=== PATIENT | female | born 1975 | race Caucasian/White ===

== ENCOUNTER 2023-10-20 01:39 | Inpatient (IN) | payer OTHER ==
[2023-10-20 02:52] VITALS: BMI 27.8
[2023-10-20] MEDS ORDERED: LOPERAMIDE HCL 2 MG CAPSULE PO PRN (03:44)
[2023-10-20] MEDS ORDERED: NALOXONE (NARCAN) HCL 4 MG/0.1 ML SPRAY NS PRN (03:44)
[2023-10-20] MEDS ORDERED: MAGNESIUM HYDROX 2400MG/30ML ORAL SUSPENSION 30 ML CUP PO PRN (03:44)
[2023-10-20] MEDS ORDERED: DICYCLOMINE HCL 10 MG CAPSULE PO PRN (03:44)
[2023-10-20] MEDS ORDERED: guaiFENesin 600 MG TABLET.ER (FP) PO PRN (03:44)
[2023-10-20] MEDS ORDERED: BISMUTH SUBSALICYLATE 524 MG/30 ML PO PRN (03:44)
[2023-10-20] MEDS ORDERED: ACETAMINOPHEN 325 MG TABLET (FP) PO PRN (03:44)
[2023-10-20] MEDS ORDERED: BENZONATATE 200 MG CAPSULE PO PRN (03:44)
[2023-10-20] MEDS ORDERED: BENZOCAINE/MENTHOL (CHLORASEPTIC ) LOZENGE MM PRN (03:44)
[2023-10-20] MEDS ORDERED: POLYETHYLENE GLYCOL (HEALTHYLAX) 3350 17 GM PACKET PO PRN (03:44)
[2023-10-20] MEDS ORDERED: IBUPROFEN 400 MG TABLET (FP) PO PRN (03:44)
[2023-10-20] MEDS ORDERED: NALOXONE HCL 0.4 MG/ML VIAL IM PRN (03:44)
[2023-10-20] MEDS ORDERED: cloNIDine HCL 0.1 MG TABLET PO PRN (03:54)
[2023-10-20] MEDS: methaDONE HCL 10 MG TABLET (FOR DETOX USE ONLY) PO ONE (05:34)
[2023-10-20] MEDS: clonazePAM 0.5 MG ODT TABLETS SL PRN (05:34)
[2023-10-20] MEDS: IBUPROFEN 600 MG TABLET (FP) PO PRN (05:36)
[2023-10-20] MEDS ORDERED: AMOX TR/POT CLAV 875MG/125MG TABLETS (FP) PO SCH (08:00)
[2023-10-20] MEDS: NICOTINE 21 MG/24 HOURS TOPICAL PATCH TD SCH (09:43)
[2023-10-20] MEDS: PRENATAL VITAMINS W/ FOLIC ACID TABLET (FP) PO SCH (09:43)
[2023-10-20] MEDS: AMOX TR/POT CLAV 875MG/125MG TABLETS (FP) PO SCH (10:20)
[2023-10-20] MEDS: SULFAMETHOXAZOLE/TRIMETHOPRIM 800MG/160MG D.S. TABLET PO SCH (10:46)
[2023-10-20] MEDS: BACITRACIN 0.9 GM PACKET TP SCH (10:46)
[2023-10-20] MEDS: hydrOXYzine PAMOATE 25 MG CAPSULE (FP) PO PRN (10:54)
[2023-10-20 11:53] LABS: CHLORIDE 107 mmol/L (98-107); HEMATOCRIT 29.2 % (32.4-45.2); HEMOGLOBIN 9.8 GM/dL (10.7-15.3); MCH 31.1 pg (25.7-33.7); MCHC 33.6 g/dl (32.0-36.0); MEAN CELL VOLUME 92.6 fl (80-96); MEAN PLT VOLUME 8.7 fl (7.5-11.1); PLATELET COUNT 151 10^3/uL (134-434); POTASSIUM 4.6 mmol/L (3.5-5.1); RBC 3.15 M/mm3 (3.60-5.2); RDW 15.2 % (11.6-15.6); SODIUM 143 mmol/L (136-145); WHITE BLOOD COUNT 4.4 K/mm3 (4.0-10.0)
[2023-10-20 12:04] LABS: ALBUMIN 3.3 g/dl (3.4-5.0); CALCIUM 9.3 mg/dL (8.5-10.1)
[2023-10-20 12:05] LABS: ANION GAP 4 mmol/L (4-13); BLOOD UREA NITROGEN 19.4 mg/dL (7-18); CO2 32 mmol/L (21-32); GLUCOSE,RANDOM 118 mg/dL (74-106)
[2023-10-20 12:07] LABS: SGPT/ALT 20 U/L (13-61)
[2023-10-20 12:08] LABS: CREATININE 0.7 mg/dL (0.55-1.3); SGOT/AST 15 U/L (15-37)
[2023-10-20 12:09] LABS: BILIRUBIN,TOTAL 0.6 mg/dL (0.2-1)
[2023-10-20 12:10] LABS: ALK PHOS 90 U/L (45-117)
[2023-10-20] MEDS: DIVALPROEX SODIUM 500 MG TABLET E.C. PO SCH (21:54)
[2023-10-20] MEDS: THIAMINE 100 MG TABLET PO SCH (21:55)
[2023-10-20] MEDS: risperiDONE 1 MG TABLET PO SCH (21:55)
[2023-10-20] MEDS: MELATONIN 5 MG TABLETS PO SCH (21:55)
[2023-10-20] MEDS: traZODone HCL 50 MG TABLET (FP) PO SCH (21:55)
[2023-10-20] MEDS ORDERED: traZODone HCL 100 MG TABLET (FP) PO SCH (22:00)
[2023-10-22] MEDS: methaDONE HCL 10 MG TABLET (FOR DETOX USE ONLY) PO ONE (09:27)
[2023-10-22] MEDS: NICOTINE POLACRILEX 4 MG GUM BUC PRN (15:58)
[2023-10-22] MEDS: MAG HYDROX/AL HYDROX/SIMETH 30 ML UNIT-DOSE CUP PO PRN (15:58)
[2023-10-23] MEDS: ONDANSETRON *ODT* 4 MG TABLET SL PRN (14:31)
[2023-10-23] MEDS: METHOCARBAMOL 500 MG TABLET PO PRN (18:48)
[2023-10-24] MEDS: methaDONE HCL 10 MG TABLET (FOR DETOX USE ONLY) PO ONE (10:01)
[2023-10-25 06:23] VITALS: RESP 16
[2023-10-25 08:43] VITALS: BP 111/63; PULSE 72; TEMP 97.8
== END 2023-10-25 08:31 | disposition other institution (70) | DRG 773 ==
LOC: YASAS 01:39 → Y3N 04:05
PROVIDERS: ADMIT Allergy & Immunology; ATTEND Allergy & Immunology
PROC: HZ2ZZZZ Detoxification Services for Substance Abuse Treatment (ICD-10-PCS; principal; 2023-10-20)
DX: F11.23 Opioid dependence with withdrawal (principal); F10.230 Alcohol dependence with withdrawal, uncomplicated; F14.20 Cocaine dependence, uncomplicated; F12.20 Cannabis dependence, uncomplicated; F17.210 Nicotine dependence, cigarettes, uncomplicated; F19.24 Other psychoactive substance dependence with psychoactive substance-induced mood disorder; F31.9 Bipolar disorder, unspecified; D64.9 Anemia, unspecified; G47.00 Insomnia, unspecified; S91.301D Unspecified open wound, right foot, subsequent encounter; X58.XXXD Exposure to other specified factors, subsequent encounter; Z59.01 Sheltered homelessness; Z86.73 Personal history of transient ischemic attack (TIA), and cerebral infarction without residual deficits; Z88.0 Allergy status to penicillin
CPT/HCPCS: 36415; 80053; 80164; 80305; 80307; 81025; 85027; 86780; 93005; 93010; Q0162

== ENCOUNTER 2023-11-17 14:35 | Inpatient (IN) | payer OTHER ==
[2023-11-17 16:50] VITALS: BMI 27.3
[2023-11-17] MEDS ORDERED: IBUPROFEN 400 MG TABLET (FP) PO PRN (18:43)
[2023-11-17] MEDS ORDERED: ONDANSETRON *ODT* 4 MG TABLET SL PRN (18:43)
[2023-11-17] MEDS ORDERED: NALOXONE HCL 0.4 MG/ML VIAL IM PRN (18:43)
[2023-11-17] MEDS ORDERED: DICYCLOMINE HCL 10 MG CAPSULE PO PRN (18:43)
[2023-11-17] MEDS ORDERED: BENZOCAINE/MENTHOL (CHLORASEPTIC ) LOZENGE MM PRN (18:43)
[2023-11-17] MEDS ORDERED: POLYETHYLENE GLYCOL (HEALTHYLAX) 3350 17 GM PACKET PO PRN (18:43)
[2023-11-17] MEDS ORDERED: ACETAMINOPHEN 325 MG TABLET (FP) PO PRN (18:43)
[2023-11-17] MEDS ORDERED: BISMUTH SUBSALICYLATE 524 MG/30 ML PO PRN (18:43)
[2023-11-17] MEDS ORDERED: guaiFENesin 600 MG TABLET.ER (FP) PO PRN (18:43)
[2023-11-17] MEDS ORDERED: MAGNESIUM HYDROX 2400MG/30ML ORAL SUSPENSION 30 ML CUP PO PRN (18:43)
[2023-11-17] MEDS ORDERED: BENZONATATE 200 MG CAPSULE PO PRN (18:43)
[2023-11-17] MEDS ORDERED: NICOTINE POLACRILEX 2 MG GUM BUC PRN (18:43)
[2023-11-17] MEDS ORDERED: NALOXONE (NARCAN) HCL 4 MG/0.1 ML SPRAY NS PRN (18:43)
[2023-11-17] MEDS ORDERED: LOPERAMIDE HCL 2 MG CAPSULE PO PRN (18:43)
[2023-11-17] MEDS ORDERED: cloNIDine HCL 0.1 MG TABLET PO PRN (18:52)
[2023-11-17] MEDS ORDERED: cloNIDine HCL 0.1 MG TABLET ONE (19:20)
[2023-11-17] MEDS ORDERED: methaDONE HCL 10 MG TABLET (FOR DETOX USE ONLY) ONE (19:20)
[2023-11-17] MEDS: cloNIDine HCL 0.1 MG TABLET PO ONE (19:25)
[2023-11-17] MEDS: methaDONE HCL 10 MG TABLET (FOR DETOX USE ONLY) PO ONE (19:25)
[2023-11-17] MEDS: MELATONIN 5 MG TABLETS PO SCH (22:40)
[2023-11-17] MEDS: THIAMINE 100 MG TABLET PO SCH (22:40)
[2023-11-17] MEDS: IBUPROFEN 600 MG TABLET (FP) PO PRN (22:42)
[2023-11-17] MEDS: METHOCARBAMOL 500 MG TABLET PO PRN (22:42)
[2023-11-17] MEDS: hydrOXYzine PAMOATE 25 MG CAPSULE (FP) PO PRN (22:42)
[2023-11-18] MEDS: NICOTINE 14 MG/24 HOURS TOPICAL PATCH TD SCH (10:31)
[2023-11-18] MEDS: PRENATAL VITAMINS W/ FOLIC ACID TABLET (FP) PO SCH (10:32)
[2023-11-18] MEDS: amLODIPine BESYLATE 5 MG TABLET (FP) PO SCH (10:32)
[2023-11-18 11:40] LABS: HEMATOCRIT 35.2 % (32.4-45.2); MCH 29.8 pg (25.7-33.7); MEAN CELL VOLUME 87.5 fl (80-96); MEAN PLT VOLUME 8.9 fl (7.5-11.1); PLATELET COUNT 154 10^3/uL (134-434); RBC 4.02 M/mm3 (3.60-5.2); RDW 13.4 % (11.6-15.6); WHITE BLOOD COUNT 4.7 K/mm3 (4.0-10.0)
[2023-11-18 12:04] LABS: CHLORIDE 107 mmol/L (98-107); POTASSIUM 3.4 mmol/L (3.5-5.1); SODIUM 142 mmol/L (136-145)
[2023-11-18 12:09] LABS: ALBUMIN 3.4 g/dl (3.4-5.0); ANION GAP 4 mmol/L (4-13); CALCIUM 9.1 mg/dL (8.5-10.1); CO2 31 mmol/L (21-32); GLUCOSE,RANDOM 97 mg/dL (74-106)
[2023-11-18 12:10] LABS: BLOOD UREA NITROGEN 16.3 mg/dL (7-18)
[2023-11-18 12:12] LABS: SGPT/ALT 30 U/L (13-61)
[2023-11-18 12:13] LABS: CREATININE 0.8 mg/dL (0.55-1.3)
[2023-11-18 12:14] LABS: BILIRUBIN,TOTAL 0.6 mg/dL (0.2-1); SGOT/AST 22 U/L (15-37)
[2023-11-18 12:16] LABS: ALK PHOS 72 U/L (45-117)
[2023-11-18] MEDS: hydrOXYzine PAMOATE 25 MG CAPSULE (FP) PO PRN (15:17)
[2023-11-18] MEDS: DIVALPROEX SODIUM 500 MG TABLET E.C. PO SCH (22:25)
[2023-11-18] MEDS: risperiDONE 1 MG TABLET PO SCH (22:25)
[2023-11-19] MEDS: methaDONE HCL 10 MG TABLET PO ONE ×2 (11:04→11:16)
[2023-11-19] MEDS: methaDONE HCL 10 MG TABLET (FOR DETOX USE ONLY) PO ONE (11:16)
[2023-11-19] MEDS: diazePAM 5 MG TABLET PO PRN (18:20)
[2023-11-19] MEDS: levETIRAcetam 250 MG TABLET PO SCH (22:08)
[2023-11-20] MEDS ORDERED: methaDONE HCL 10 MG TABLET PO ONE (10:03)
[2023-11-21] MEDS: methaDONE HCL 40 MG DISPERSABLE TABLET PO ONE (09:11)
[2023-11-21] MEDS ORDERED: methaDONE HCL 10 MG TABLET (FOR DETOX USE ONLY) PO ONE (10:00)
[2023-11-22] MEDS: methaDONE HCL 40 MG DISPERSABLE TABLET PO ONE (09:20)
[2023-11-22] MEDS: MAG HYDROX/AL HYDROX/SIMETH 30 ML UNIT-DOSE CUP PO PRN (19:51)
[2023-11-23] MEDS: methaDONE 40 MG, methaDONE 10 MG PO ONE (09:43)
[2023-11-23 09:49] VITALS: RESP 18; TEMP 97.6
[2023-11-23 13:20] VITALS: BP 122/71; PULSE 88
== END 2023-11-23 14:16 | disposition other institution (70) | DRG 773 ==
LOC: YASAS 14:35 → Y6N 18:32
PROVIDERS: ADMIT Allergy & Immunology; ATTEND Surgery
PROC: HZ2ZZZZ Detoxification Services for Substance Abuse Treatment (ICD-10-PCS; principal; 2023-11-17)
DX: F11.23 Opioid dependence with withdrawal (principal); F10.230 Alcohol dependence with withdrawal, uncomplicated; F14.20 Cocaine dependence, uncomplicated; F12.20 Cannabis dependence, uncomplicated; F17.210 Nicotine dependence, cigarettes, uncomplicated; F25.0 Schizoaffective disorder, bipolar type; F41.9 Anxiety disorder, unspecified
CPT/HCPCS: 36415; 80053; 80305; 80307; 81025; 84132; 85027; 86780; 87811; 93005; 93010

== ENCOUNTER 2023-11-23 14:44 | Inpatient (IN) | payer OTHER ==
[2023-11-23] MEDS ORDERED: NALOXONE (NARCAN) HCL 4 MG/0.1 ML SPRAY NS PRN (16:39)
[2023-11-23] MEDS ORDERED: ACETAMINOPHEN 325 MG TABLET (FP) PO PRN (16:39)
[2023-11-23] MEDS ORDERED: guaiFENesin 600 MG TABLET.ER (FP) PO PRN (16:39)
[2023-11-23] MEDS ORDERED: LOPERAMIDE HCL 2 MG CAPSULE PO PRN (16:39)
[2023-11-23] MEDS ORDERED: MAGNESIUM HYDROX 2400MG/30ML ORAL SUSPENSION 30 ML CUP PO PRN (16:39)
[2023-11-23] MEDS ORDERED: BENZONATATE 200 MG CAPSULE PO PRN (16:39)
[2023-11-23] MEDS ORDERED: NICOTINE POLACRILEX 2 MG LOZENGE BC PRN (16:39)
[2023-11-23] MEDS ORDERED: NALOXONE HCL 0.4 MG/ML VIAL IVPUSH PRN (16:39)
[2023-11-23] MEDS ORDERED: POLYETHYLENE GLYCOL (HEALTHYLAX) 3350 17 GM PACKET PO PRN (16:39)
[2023-11-23] MEDS: risperiDONE 1 MG TABLET PO SCH (21:38)
[2023-11-23] MEDS: MELATONIN 5 MG TABLETS PO SCH (21:38)
[2023-11-23] MEDS: THIAMINE 100 MG TABLET PO SCH (21:38)
[2023-11-23] MEDS: DIVALPROEX SODIUM 500 MG TABLET E.C. PO SCH (21:38)
[2023-11-24] MEDS: methaDONE 40 MG, methaDONE 20 MG PO ONE (07:41)
[2023-11-24] MEDS: methaDONE HCL 10 MG TABLET PO ONE (09:03)
[2023-11-24] MEDS: amLODIPine BESYLATE 5 MG TABLET (FP) PO SCH (10:12)
[2023-11-24] MEDS: PRENATAL VITAMINS W/ FOLIC ACID TABLET (FP) PO SCH (10:13)
[2023-11-24] MEDS: NICOTINE 14 MG/24 HOURS TOPICAL PATCH TD SCH (10:14)
[2023-11-24] MEDS ORDERED: LACTULOSE 20 GM/30 ML UDC (FOR ORAL USE ONLY) PO PRN (13:26)
[2023-11-24] MEDS: LACTULOSE 20 GM/30 ML UDC (FOR ORAL USE ONLY) PO SCH (15:11)
[2023-11-24] MEDS: PRAZOSIN HCL 1 MG CAPSULE PO SCH (21:34)
[2023-11-24] MEDS: hydrOXYzine PAMOATE 25 MG CAPSULE (FP) PO PRN (21:34)
[2023-11-24] MEDS: METHOCARBAMOL 500 MG TABLET PO PRN (21:35)
[2023-11-24] MEDS ORDERED: PRAZOSIN HCL 1 MG CAPSULE PO SCH (22:00)
[2023-11-25] MEDS ORDERED: methaDONE HCL 10 MG TABLET PO ONE (06:00)
[2023-11-25] MEDS: methaDONE 40 MG, methaDONE 20 MG PO ONE (06:14)
[2023-11-25] MEDS: SILVER SULFADIAZINE 1% TOP CREAM 50 GM JAR TP SCH (14:28)
[2023-11-26] MEDS ORDERED: methaDONE HCL 10 MG TABLET PO ONE (06:00)
[2023-11-26] MEDS: methaDONE 40 MG, methaDONE 20 MG PO ONE (06:16)
[2023-11-26] MEDS: BENZOCAINE/MENTHOL (CHLORASEPTIC ) LOZENGE MM PRN (19:18)
[2023-11-26] MEDS: IBUPROFEN 600 MG TABLET (FP) PO PRN (19:18)
[2023-11-26] MEDS: MELATONIN 5 MG TABLETS PO PRN (21:15)
[2023-11-26 22:09] LABS: EPI CELLS 27 /uL (0-25.1); HYALINE CASTS 2 /uL (0-3.1); PH,URINE 5.5 (5.0-8.0); URINE APPEARANCE CLEAR; URINE BACTERIA 220 /uL (0-1359); URINE BILIRUBIN NEGATIVE (NEGATIVE); URINE COLOR DK YELLOW; URINE GLUCOSE (UA) NEGATIVE (NEGATIVE); URINE KETONE TRACE (NEGATIVE); URINE LEUK ESTERASE TRACE (NEGATIVE); URINE NITRITE NEGATIVE (NEGATIVE); URINE PROTEIN NEGATIVE (NEGATIVE); URINE RBC 8 /uL (0-23.9); URINE UROBILINOGEN 0.2 mg/dL (0.2-1.0); URINE WBC 39 /uL (0-25.8)
[2023-11-27] MEDS ORDERED: methaDONE 40 MG, methaDONE 20 MG PO ONE (06:00)
[2023-11-27] MEDS ORDERED: methaDONE HCL 10 MG TABLET PO ONE ×2 (06:00→10:00)
[2023-11-27] MEDS: methaDONE 40 MG, methaDONE 10 MG PO ONE (06:48)
[2023-11-27] MEDS ORDERED: methaDONE 40 MG, methaDONE 10 MG PO ONE (10:00)
[2023-11-27] MEDS: hydrOXYzine PAMOATE 25 MG CAPSULE (FP) PO PRN (15:28)
[2023-11-28] MEDS: methaDONE HCL 40 MG DISPERSABLE TABLET PO SCH (05:50)
[2023-11-28] MEDS: hydrOXYzine PAMOATE 25 MG CAPSULE (FP) PO PRN (17:00)
[2023-11-28] MEDS: traZODone HCL 100 MG TABLET (FP) PO SCH (21:40)
[2023-11-28] MEDS: GABAPENTIN 100 MG CAPSULE PO SCH (21:48)
[2023-11-30] MEDS: GABAPENTIN 100 MG CAPSULE PO SCH (21:28)
[2023-11-30] MEDS: hydrOXYzine PAMOATE 50 MG CAPSULE (FP) PO PRN (21:28)
[2023-12-01] MEDS: IBUPROFEN 400 MG TABLET (FP) PO PRN (06:10)
[2023-12-03] MEDS: MAG HYDROX/AL HYDROX/SIMETH 30 ML UNIT-DOSE CUP PO PRN (11:45)
[2023-12-04] MEDS ORDERED: methaDONE HCL 40 MG DISPERSABLE TABLET PO SCH (10:53)
[2023-12-04] MEDS: methaDONE HCL 10 MG TABLET PO ONE (11:52)
[2023-12-05] MEDS: methaDONE 40 MG, methaDONE 10 MG PO SCH (06:46)
[2023-12-06] MEDS: NICOTINE POLACRILEX 2 MG GUM BUC PRN (13:08)
[2023-12-06] MEDS: GABAPENTIN 300 MG CAPSULE PO SCH (21:46)
[2023-12-11] MEDS: ACAMPROSATE CALCIUM 333 MG TABLET.DR PO SCH (14:36)
[2023-12-14] MEDS: GABAPENTIN 300 MG CAPSULE PO SCH (21:16)
[2023-12-15] MEDS: GABAPENTIN 100 MG CAPSULE PO SCH (21:37)
[2023-12-18] MEDS: hydrOXYzine PAMOATE 25 MG CAPSULE (FP) PO PRN (11:59)
[2023-12-20] MEDS: hydrOXYzine PAMOATE 25 MG CAPSULE (FP) PO PRN (14:25)
[2023-12-20] MEDS: SIMETHICONE 80 MG TAB.CHEW (FP) PO PRN (19:42)
[2023-12-20 22:45] VITALS: RESP 18
[2023-12-21 06:55] VITALS: BP 125/66; PULSE 78; TEMP 97.8
== END 2023-12-21 08:40 | disposition home or self-care (01) | DRG 772 ==
LOC: YASAS 14:44 → Y5N 14:45
PROVIDERS: ADMIT Allergy & Immunology; ATTEND Psychiatry & Neurology Pain Medicine
PROC: HZ42ZZZ Group Counseling for Substance Abuse Treatment, Cognitive-Behavioral (ICD-10-PCS; principal; 2023-11-23)
DX: F11.20 Opioid dependence, uncomplicated (principal); F10.20 Alcohol dependence, uncomplicated; F14.20 Cocaine dependence, uncomplicated; F17.210 Nicotine dependence, cigarettes, uncomplicated; F43.10 Post-traumatic stress disorder, unspecified; F19.982 Other psychoactive substance use, unspecified with psychoactive substance-induced sleep disorder; F19.94 Other psychoactive substance use, unspecified with psychoactive substance-induced mood disorder; F41.9 Anxiety disorder, unspecified; F29 Unspecified psychosis not due to a substance or known physiological condition; F32.A Depression, unspecified; I10 Essential (primary) hypertension; B18.2 Chronic viral hepatitis C; G47.00 Insomnia, unspecified; K21.9 Gastro-esophageal reflux disease without esophagitis; I83.91 Asymptomatic varicose veins of right lower extremity; L97.519 Non-pressure chronic ulcer of other part of right foot with unspecified severity; Z88.0 Allergy status to penicillin; Z91.148 Patient's other noncompliance with medication regimen for other reason; Z86.73 Personal history of transient ischemic attack (TIA), and cerebral infarction without residual deficits
CPT/HCPCS: 36415; 81003; 82140; 86803; 87522